=== PATIENT | male | born 1955 | race Caucasian/White ===

== ENCOUNTER 2016-05-10 16:44 | Emergency (ER) | payer OTHER ==
[2016-05-10 16:51] VITALS: TEMP 98.1; O2SAT 95
--- NOTE | 2016-05-10 17:06 | EDPHY ---
H & P Stated Complaint: l calf pain and swelling/hx of dvt on xarelto HPI/ROS: CHIEF COMPLAINT: left calf pain, previous DVT HISTORY OF PRESENT ILLNESS: patient has 3 days history of mild left calf pain. Gradual onset, constant duration but waxes and wanes. [id number] severity. Never severe. No redness. No edema. No chest pain, shortness of breath, cough, fever. They pain is very mild but it is similar to when he was diagnosed with DVT in this leg last year. He felt that it was 3-4 months ago, but chart shows that He was diagnosed November 21. He was initially treated with Lovenox and Coumadin, and then Coumadin until last week. He was not tolerating the Coumadin due to multiple INR checks that were bothering him, thus he was transitioned to Xarelto by his primary care physician. He did not miss any doses. No other associated complaints with this. No worse with exertion. No radiating pain. No other associated complaints or modifying factors. REVIEW OF SYSTEMS: Ten systems reviewed and are negative unless otherwise noted in the HPI EXAMINATION General Appearance: Alert, no distress Head: normocephalic, atraumatic Eyes: Pupils equal and round, no conjunctival pallor or injection ENT, Mouth: Mucous membranes moist Neck: Normal inspection, supple, non-tender Respiratory: Lungs are clear to auscultation . No wheezing, rhonchi or crackles. Cardiovascular: Regular rate and rhythm . No murmur. Pulses intact distally was symmetric DP and PT pulses Neurological: A&O, nonfocal, normal gait . Strength symmetric in all limbs. Skin: Warm and dry, no rash . No erythema. Extremities: Mild tenderness to palpation of the left calf. No edema. No pain with passive dorsiflexion. No palpable cords. No evidence of DVT. Psychiatric: Mood and affect normal DIFFERENTIAL DIAGNOSES: Including but not limited to DVT, calf tenderness, rhabdo, muscular strain, sprain MDM: 5:01 p.m. left lower extremity / calf tenderness that feels the same as when the patient was diagnosed with a DVT through 4 months ago. He was on Lovenox and Coumadin, but transitioned to Xarelto last week By his PCP. No fever or chills. No redness. No edema. No chest pain, shortness of breath or cough. No other associated complaints or modifying factors. his examination is not concerning for DVT, given his history I did immediately ordered an ultrasound to rule out acute DVT. 6:40 p.m. radiologist has notified me that the ultrasound of the lower extremities negative for DVT, and the previously visualized DVTs have resolved. I discussed this with the patient and re-evaluated. I do feel he is stable for discharge home. Uncertain etiology of the musculoskeletal calf pain but there is no DVT. Laboratory studies were normal. I instructed him to continue taking his Xarelto and follow up with his primary care physician as he is still only 5 months out of his diagnosis. Patient is comfortable with this plan and discharged home in stable condition. SUPERVISION: This patient was independently evaluated without the aide of supervising physician. Source: Patient, Old records Exam Limitations: No limitations - Personal History Current Tetanus/Diphtheria Vaccine: Unsure - Medical/Surgical History Hx Asthma: No Hx Chronic Respiratory Disease: No Hx Diabetes: No Hx Cardiac Disease: No Hx Renal Disease: No Hx Cirrhosis: No Hx Alcoholism: No Hx HIV/AIDS: No Hx Splenectomy or Spleen Trauma: No Other PMH: DENIES MEDICAL TRAUMA. TONSILS/dvt - Social History Smoking Status: Never smoked Constitutional: Initial Vital Signs Temperature (C) 98.1 F 05/10/16 16:49 Heart Rate 64 05/10/16 16:49 Respiratory Rate 20 05/10/16 16:49 Blood Pressure 145/83 H 05/10/16 16:49 O2 Sat (%) 95 05/10/16 16:49 O2 Delivery Mode Room Air Allergies/Adverse Reactions: No Known Allergies Allergy (Verified 05/10/16 16:46) Home Medications: Medication Instructions Recorded Antacid 05/10/16 PARoxetine HCL 05/10/16 Xarelto 05/10/16 buPROPion 05/10/16 l-Methylfolate Calcium 05/10/16 Medical Decision Making - Data Points Laboratory Results: Laboratory Results 05/10/16 17:03 05/10/16 17:03 05/10/16 05/10/16 05/10/16 17:03 17:03 17:03 WBC 6.96 10^3/uL 10^3/uL (3.80-9.50) RBC 5.35 10^6/uL 10^6/uL (4.40-6.38) Hgb 16.6 g/dL g/dL (13.7-17.5) Hct 47.3 % % (40.0-51.0) MCV 88.4 fL fL (81.5-99.8) MCH 31.0 pg pg (27.9-34.1) MCHC 35.1 g/dL g/dL (32.4-36.7) RDW 13.4 % % (11.5-15.2) Plt Count 255 10^3/uL 10^3/uL (150-400) MPV 11.0 fL fL (8.7-11.7) Neut % (Auto) 60.8 % % (39.3-74.2) Lymph % (Auto) 23.4 % % (15.0-45.0) [place] % (Auto) 9.9 % % (4.5-13.0) Eos % (Auto) 4.6 % % (0.6-7.6) Baso % (Auto) 0.9 % % (0.3-1.7) Nucleat RBC Rel Count 0.0 % % (0.0-0.2) Absolute Neuts (auto) 4.23 10^3/uL 10^3/uL (1.70-6.50) Absolute Lymphs (auto) 1.63 10^3/uL 10^3/uL (1.00-3.00) Absolute Monos (auto) 0.69 10^3/uL 10^3/uL (0.30-0.80) Absolute Eos (auto) 0.32 10^3/uL 10^3/uL (0.03-0.40) Absolute Basos (auto) 0.06 10^3/uL 10^3/uL (0.02-0.10) Absolute Nucleated RBC 0.00 10^3/uL 10^3/uL (0-0.01) Immature Gran % 0.4 % % (0.0-1.1) Immature Gran # 0.03 10^3/uL 10^3/uL (0.00-0.10) PT 13.7 SEC SEC (12.0-15.0) INR 1.06 (0.83-1.16) APTT 30.5 SEC SEC (23.0-38.0) Sodium 140 mEq/L mEq/L (134-144) Potassium 4.0 mEq/L mEq/L (3.5-5.2) Chloride 104 mEq/L mEq/L (97-110) Carbon Dioxide 26 mEq/l mEq/l (22-31) Anion Gap 10 mEq/L mEq/L (8-16) BUN 19 mg/dL mg/dL (7-23) Creatinine 0.9 mg/dL mg/dL (0.7-1.3) Estimated GFR > 60 Glucose 129 mg/dL H mg/dL (70-100) Calcium 9.8 mg/dL mg/dL (8.5-10.4) Creatine Kinase 100 IU/L IU/L (0-224) Departure - Departure Disposition: Home, Routine, Self-Care Clinical Impression: Pain of left calf Condition: Good Instructions: Musculoskeletal Pain (ED) Additional Instructions: Continue medications as prescribed. Follow up with primary care physician. Return to ER for return of pain or any chest pain or shortness of breath. Referrals: [facility] [Other] - As per Instructions
[2016-05-10 17:15] LABS: % IMMATURE GRANULYOCYTES 0.4 % (0.0-1.1); ABSOLUTE IMMATURE GRANULOCYTES 0.03 10^3/uL (0.00-0.10); ADD DIFF? NO; ADD MORPH? NO; ADD SCAN? NO; ATYPICAL LYMPHOCYTE FLAG 0 (0-99); FRAGMENT RBC FLAG 10 (0-99); HEMATOCRIT 47.3 % (40.0-51.0); HEMOGLOBIN 16.6 g/dL (13.7-17.5); LEFT SHIFT FLG 0 (0-99); LIPEMIA HEMOLYSIS FLAG 90 (0-99); MEAN CELL HEMOGLOBIN CONCENTR. 35.1 g/dL (32.4-36.7); MEAN CELL VOLUME 88.4 fL (81.5-99.8); PLATELET CLUMPS FLAG 10 (0-99); PLATELET COUNT 255 10^3/uL (150-400); RED BLOOD CELL COUNT 5.35 10^6/uL (4.40-6.38); RED CELL DISTRIBUTION WIDTH 13.4 % (11.5-15.2)
[2016-05-10 17:23] LABS: INR 1.06 (0.83-1.16); PROTIME(PATIENT) 13.7 SEC (12.0-15.0)
[2016-05-10 17:29] LABS: APTT 30.5 SEC (23.0-38.0); CHLORIDE 104 mEq/L (97-110); SODIUM 140 mEq/L (134-144)
[2016-05-10 17:30] LABS: ANION GAP 10 mEq/L (8-16); CALCIUM 9.8 mg/dL (8.5-10.4); CARBON DIOXIDE 26 mEq/l (22-31); CREATININE 0.9 mg/dL (0.7-1.3); GLOMERULAR FILTRATION RATE > 60; GLUCOSE 129 mg/dL (70-100)
[2016-05-10 19:07] VITALS: BP 121/91; PULSE 63; RESP 16
== END 2016-05-10 19:07 | disposition home or self-care (01) ==
DX: M79.605 Pain in left leg (principal); Z79.01 Long term (current) use of anticoagulants